=== PATIENT | male | born 1960 | race Caucasian/White ===

== ENCOUNTER 2017-07-17 08:50 | Day surgery (SDC) | payer OTHER ==
[~2017-07-17] VITALS: Ht 152.4 cm; Wt 82.3 kg
[~2017-07-17 08:50] MED LIST: INSU100C SQ
[2017-07-17] MEDS ORDERED: PROPOFOL 60 ML ONE (10:02)
[2017-07-17] MEDS ORDERED: LISI20TA11 PO (10:06)
[2017-07-17] MEDS ORDERED: DOCU-144 PO (10:06)
[2017-07-17] MEDS ORDERED: GABA100C14 PO (10:06)
[2017-07-17] MEDS ORDERED: LANT3I SC (10:06)
[2017-07-17 10:07] VITALS: BP 196/89; PULSE 83; RESP 8
--- NOTE | 2017-07-17 10:59 | OPPN ---
Date/Time of Note Date/Time of Note DATE: 07/17/17 TIME: 10:58 Operative Report Preoperative Diagnosis Screening Postoperative Diagnosis Small transverse colon polyp was removed Internal hemorrhoids Operation/Procedure Performed Colonoscopy and biopsy Surgeon see signature line anatomic pathology assistant None Anesthesia: MAC Estimated blood loss: none Transfusion Required none Specimen Colon polyp biopsy Grafts/Implants none Complications none MARSHA ARZATE MD Jul 17, 2017 10:59
[2017-07-17 11:19] VITALS: BP 165/79; PULSE 81; RESP 14
--- NOTE | 2017-07-18 07:14 | GILP ---
DATE OF PROCEDURE: NAME OF PROCEDURES: Colonoscopy and biopsy. SURGEON: Marsha Pringle MD PREOPERATIVE DIAGNOSIS: Screening colonoscopy. POSTOPERATIVE DIAGNOSES: 1. Colonoscopy all the way to the cecum. 2. Small transverse colon polyp was removed. 3. Internal hemorrhoids. INDICATION FOR THE PROCEDURE: Mr. Ian Gonzalez is a 56-year-old male patient who was schedul ed for screening colonoscopy. The procedure and possible complications were well explained to the patient, he understood and conse nted to the procedure. DESCRIPTION OF PROCEDURE: Under the influence of anesthesia, the colonoscope was carefully introduc ed in the rectum and under direct vision, it was advanced all the way to the cecum. FINDINGS: The patient had a small transverse colon polyp and it was removed using the biopsy forcep s. He was noted to have internal hemorrhoids. He tolerated the procedure very well and there was no complication from the procedure. At the end o f the procedure, he was awake with stable vital signs and he was discharged home to the care of his family. IMPRESSION: Please see postoperative diagnosis. PLAN: Next screening colonoscopy in 10 years. Dictated By: MARSHA RAMOS/RHINA Conf#: [id number] DID#: [id number]
== END 2017-07-17 18:15 | disposition home or self-care (01) ==
LOC: GIL 08:50
PROVIDERS: ATTEND Internal Medicine Gastroenterology
DX: Z12.11 Encounter for screening for malignant neoplasm of colon (principal); D12.3 Benign neoplasm of transverse colon; K64.8 Other hemorrhoids; E11.9 Type 2 diabetes mellitus without complications; I10 Essential (primary) hypertension; I25.10 Atherosclerotic heart disease of native coronary artery without angina pectoris
CPT/HCPCS: 82962; 88305

== ENCOUNTER 2018-05-07 14:03 | Emergency (ER) | END 2018-05-07 19:05 | disposition home or self-care (01) ==